=== PATIENT | female | born 1990 | race Caucasian/White ===

== ENCOUNTER 2021-03-25 09:20 | Outpatient (CLI) | payer OTHER ==
[~2021-03-25] VITALS: Ht 170.2 cm; Wt 95.0 kg
[~2021-03-25 09:20] MED LIST: ALBUTEROL 90 MCG/ACT 8GM HFA INHALER INH PRN; ALBUTEROL SULFATE 2.5 MG/0.5 ML INH NEB SOLN INH PRN; EPINEPHrine INJ 1 MG/ML 1ML AMP IM PRN; NS 1,000 ML IV SCH; diphenhydrAMINE 50MG/ML VIAL (J1200) IV PRN; methylPREDNISolone 125MG 2ML VIAL IV PRN
[2021-03-25 11:25] VITALS: BP_SYST 108; BP_SYST 109; BP_DIAS 78
[2021-03-25 11:55] VITALS: BP 129/71
[2021-03-25] MEDS ORDERED: ACETAMINOPHEN TAB 650MG DOSE (2X325MG) PO ONE (12:00)
[2021-03-25] MEDS ORDERED: BAMLANIVIMAB 700 MG, ETESEVIMAB 1,400 MG in NS 250 ML IV ONE (12:00)
[2021-03-25 12:25] VITALS: BP 119/70
[2021-03-25 13:25] VITALS: BP 118/73
== END 2021-03-25 13:27 | disposition home or self-care (01) ==
LOC: M OPCLI4PR 09:20
PROVIDERS: ATTEND Family Medicine
DX: U07.1 COVID-19 (principal)